=== PATIENT | female | born 1990 | race Caucasian/White ===

== ENCOUNTER 2016-08-25 14:54 | Inpatient (IN) | payer BC ==
[2016-08-25] VITALS (11 sets, daily range): BP systolic 95–149; RESP 16–18; TEMP 97.5–97.8; Ht 162.6 cm; Wt 104.3 kg
[~2016-08-25] VITALS: Ht 162.6 cm; Wt 104.3 kg
[~2016-08-25 14:54] MED LIST: OXYTOCIN 10 UNITS/ML VIAL IV ONE
[2016-08-25] MEDS: LACT RINGERS 1,000 ML IV SCH ×2 (16:10→18:40)
[2016-08-25] MEDS ORDERED: LIDOCAINE 1% BUFFERED 1 ML SYR INTRADERM PRN ×2 (16:15)
[2016-08-25] MEDS ORDERED: LACT RINGERS 1,000 ML IV SCH ×2 (16:15→20:30)
[2016-08-25] MEDS ORDERED: CEFAZOLIN (LD/OB) 100 ML IV ONE ×2 (16:15)
[2016-08-25] MEDS ORDERED: FAMOTIDINE 20 MG INJ IV ONE ×2 (16:15)
[2016-08-25] MEDS ORDERED: METOCLOPRAMIDE 10 MG/2 ML VIAL IV PUSH ONE (16:15)
[2016-08-25] MEDS ORDERED: METHYLERGONOVINE MAL 0.2 MG/ML AMP ONE (20:03)
[2016-08-25] MEDS ORDERED: MISOPROSTOL 100 MCG TAB ONE (20:03)
[2016-08-25] MEDS ORDERED: CARBOPROST 250 MCG/ML AMP ONE (20:03)
[2016-08-25] MEDS ORDERED: CARBOPROST 250 MCG/ML AMP IM ONE (20:06)
[2016-08-25] MEDS: MISOPROSTOL 200 MCG TAB PO SCH ×2 (20:06→23:43)
[2016-08-25] MEDS ORDERED: TDaP 0.5 ML VIAL IM.VACC ONE (20:30)
[2016-08-25] MEDS ORDERED: ONDANSETRON 4 MG VIAL IV PRN ×3 (20:30→23:05)
[2016-08-25] MEDS ORDERED: OXYTOCIN 15 UNITS/250 ML NS 250 ML IV SCH (20:30)
[2016-08-25] MEDS ORDERED: MEASLES,MUMPS,RUBELLA VAC SUBQ.VACC ONE (20:30)
[2016-08-25] MEDS ORDERED: MAG HYDROX 30 ML UDC PO PRN (20:30)
[2016-08-25] MEDS ORDERED: MORPHINE 2 MG/ML SYR IV PRN ×2 (23:05)
[2016-08-25] MEDS ORDERED: BUTORPHANOL 1 MG/ML VIAL IV PRN (23:05)
[2016-08-25] MEDS ORDERED: MEPERIDINE 25 MG/ML IV PRN (23:05)
[2016-08-25] MEDS ORDERED: DILAUDID 1 MG/ML AMP IV PRN (23:05)
[2016-08-25] MEDS ORDERED: DIPHENHYDRAMINE 50 MG/ML VIAL IV PRN (23:05)
[2016-08-25] MEDS ORDERED: NALOXONE 0.4 MG/ML AMP IV PRN (23:05)
[2016-08-25] MEDS ORDERED: PROMETHAZINE 25 MG/ML VIAL IV PRN (23:05)
[2016-08-25] MEDS ORDERED: MORPHINE 4 MG/ML SYR IV PRN ×2 (23:05)
[2016-08-25] MEDS ORDERED: OXYCODONE 5 MG TAB PO PRN (23:05)
[2016-08-25] MEDS: KETOROLAC 30 MG/ML VIAL IV SCH (23:44)
[2016-08-26] VITALS (8 sets, daily range): BP systolic 114–139; RESP 16–20; TEMP 97.5–98.5
[2016-08-26] MEDS: MISOPROSTOL 200 MCG TAB PO SCH (03:22)
[2016-08-26] MEDS: LACT RINGERS 1,000 ML IV SCH ×2 (05:20→11:27)
[2016-08-26] MEDS: KETOROLAC 30 MG/ML VIAL IV SCH ×3 (05:20→17:27)
[2016-08-26] MEDS: SODIUM CHLORIDE 0.9% FLUSH BAG 500 ML IV SCH (05:21)
[2016-08-26] MEDS: SALINE FLUSH 10 ML FLUSH SCH ×2 (08:00→21:05)
[2016-08-26] MEDS: DOCUSATE SOD 100 MG CAP PO SCH (08:34)
[2016-08-26] MEDS ORDERED: LACT RINGERS 500 ML IV ONE (11:25)
[2016-08-26] MEDS: Ibuprofen 600 MG TAB PO SCH ×3 (12:00→23:45)
[2016-08-26] MEDS: SALINE FLUSH 10 ML FLUSH PRN ×2 (15:38→17:28)
[2016-08-27] VITALS (9 sets, daily range): BP systolic 113–131; RESP 16–20; TEMP 97.3–98.6
[2016-08-27] MEDS: Ibuprofen 600 MG TAB PO SCH ×4 (05:54→23:07)
[2016-08-27] MEDS: SODIUM CHLORIDE 0.9% FLUSH BAG 500 ML IV SCH (05:54)
[2016-08-27] MEDS: DOCUSATE SOD 100 MG CAP PO SCH (07:56)
[2016-08-28] MEDS: Ibuprofen 600 MG TAB PO SCH ×2 (05:05→11:57)
[2016-08-28 05:08] VITALS: BP_SYST 148; RESP 16; TEMP 97.8
[2016-08-28] MEDS: DOCUSATE SOD 100 MG CAP PO SCH (07:32)
[2016-08-28 09:29] VITALS: BP_SYST 148; RESP 16; TEMP 97.8
[2016-08-28 09:32] VITALS: BP_SYST 148; RESP 16; TEMP 97.8
[2016-08-28 09:34] VITALS: BP_SYST 135; RESP 24; TEMP 98.6
== END 2016-08-28 12:06 | disposition home or self-care (01) | DRG 766 ==
LOC: LDOP 14:54 → LD 15:57 → OB 23:23
PROVIDERS: ADMIT Obstetrics & Gynecology Reproductive Endocrinology; ATTEND Obstetrics & Gynecology Reproductive Endocrinology
PROC: 10D00Z1 Extraction of Products of Conception, Low, Open Approach (ICD-10-PCS; principal; 2016-08-25)
DX: O14.94 Unspecified pre-eclampsia, complicating childbirth (principal); O36.63X0 Maternal care for excessive fetal growth, third trimester, not applicable or unspecified; Z3A.37 37 weeks gestation of pregnancy; Z37.0 Single live birth
CPT/HCPCS: 80053; 82803; 85025